=== PATIENT | male | born 1975 | race Caucasian/White ===

== ENCOUNTER 2018-10-19 17:07 | Observation (INO) | payer OTHER ==
[2018-10-19] MEDS ORDERED: ASPIRIN 81 MG PO STA (17:53)
[2018-10-19] MEDS ORDERED: NITROGLYCERIN OINT 1 INCH/GM PACKET TOPICAL STA (17:53)
[2018-10-19] MEDS ORDERED: MORPHINE SULFATE 4 MG/ML SYRINGE IV STA (17:53)
--- NOTE | 2018-10-19 18:00 | ED ---
General Adult HPI - General Chief complaint: Chest Pain Stated complaint: Chest Pain Time Seen by Provider: 10/19/18 17:43 Source: patient, EMS, RN notes reviewed Mode of arrival: EMS Limitations: no limitations - History of Present Illness Initial comments: Patient is a pleasant 43-year-old male presenting to the emergency Department with complaints of chest discomfort. Onset of symptoms was prior to arrival while walking. Patient has pressure in the left side of his chest. There is occasional radiation towards the jaw. Patient does have some mild associated dyspnea. No nausea. Patient was sweaty at onset however that has resolved. Patient received aspirin and 2 nitroglycerin by EMS without any change of symptoms. Discomfort remains 10/18. No back pain. No leg pain or leg swelling. No history of similar symptoms previously. - Related Data Home Medications Medication Instructions Recorded Confirmed Lisinopril 40 mg PO DAILY 10/19/18 10/19/18 amLODIPine [Norvasc] 10 mg PO DAILY 10/19/18 10/19/18 Allergies Allergy/AdvReac Type Severity Reaction Status Date / Time Iodinated Contrast- Oral and Allergy Anaphylaxis Verified 10/19/18 17:32 IV Dye Review of Systems ROS Statement: Those systems with pertinent positive or pertinent negative responses have been documented in the HPI. ROS Other: All systems not noted in ROS Statement are negative. Constitutional: Denies: fever Eyes: Denies: eye pain ENT: Denies: ear pain Respiratory: Denies: cough Cardiovascular: Reports: chest pain Endocrine: Denies: fatigue Gastrointestinal: Denies: abdominal pain Genitourinary: Reports: dysuria Musculoskeletal: Reports: back pain Skin: Denies: rash Neurological: Denies: weakness General Exam Limitations: no limitations General appearance: alert, in no apparent distress Head exam: Present: atraumatic Eye exam: Present: normal appearance ENT exam: Present: normal oropharynx Neck exam: Present: normal inspection Respiratory exam: Present: normal lung sounds bilaterally. Absent: chest wall tenderness Cardiovascular Exam: Present: regular rate, irregular rhythm Expanded Peripheral pulses: 2+: Radial (R), Radial (L), Dorsalis Pedis (R), Dorsalis Pedis (L) GI/Abdominal exam: Present: soft. Absent: tenderness Extremities exam: Present: normal inspection. Absent: pedal edema, calf tenderness Neurological exam: Present: alert Psychiatric exam: Present: normal affect, normal mood Skin exam: Present: normal color Course Vital Signs 10/19/18 10/19/18 10/19/18 17:18 17:20 17:30 Temperature 98.4 F Pulse Rate 77 73 73 Respiratory 24 Rate Blood Pressure 152/91 O2 Sat by Pulse 95 95 92 L Oximetry 10/19/18 10/19/18 10/19/18 17:40 17:50 18:00 Temperature Pulse Rate 74 68 69 Respiratory Rate Blood Pressure 146/85 O2 Sat by Pulse 92 L Oximetry 10/19/18 10/19/18 18:10 18:20 Temperature Pulse Rate 67 64 Respiratory Rate Blood Pressure 146/85 146/85 O2 Sat by Pulse 91 L Oximetry EKG Findings - EKG Comments: EKG Findings:: Sinus rhythm at 81. PVC is present. Care 122. QRS 104. QT 400. QTc 464. Left axis. LVH. No acute ST change. Medical Decision Making - Medical Decision Making Patient reevaluated and resting comfortably in bed. Patient saw some discomfort. Patient updated on results and plan. Case was discussed in detail with Dr. Becker, covering for hospital call, who will admit. - Lab Data Result diagrams: 10/19/18 17:15 10/19/18 17:15 Lab Results 10/19/18 10/19/18 10/19/18 Range/Units 17:15 17:15 17:15 WBC 16.6 H (3.8-10.6) k/uL RBC 5.38 (4.30-5.90) m/uL Hgb 14.5 (13.0-17.5) gm/dL Hct 43.9 (39.0-53.0) % MCV 81.6 (80.0-100.0) fL MCH 27.0 (25.0-35.0) pg MCHC 33.1 (31.0-37.0) g/dL RDW 15.2 (11.5-15.5) % Plt Count 214 (150-450) k/uL Neutrophils % 93 % Lymphocytes % 4 % Monocytes % 2 % Eosinophils % 1 % Basophils % 0 % Neutrophils # 15.4 H (1.3-7.7) k/uL Lymphocytes # 0.7 L (1.0-4.8) k/uL Monocytes # 0.3 (0-1.0) k/uL Eosinophils # 0.1 (0-0.7) k/uL Basophils # 0.1 (0-0.2) k/uL Hypochromasia Slight Poikilocytosis Slight PT 9.9 (9.0-12.0) sec INR 0.9 (<1.2) APTT 23.0 (22.0-30.0) sec D-Dimer 0.42 (<0.60) mg/L FEU Sodium 138 (137-145) mmol/L Potassium 4.9 (3.5-5.1) mmol/L Chloride 100 (98-107) mmol/L Carbon Dioxide 27 (22-30) mmol/L Anion Gap 11 mmol/L BUN 30 H (9-20) mg/dL Creatinine 0.86 (0.66-1.25) mg/dL Est GFR (CKD-EPI)AfAm >90 (>60 ml/min/1.73 sqM) Est GFR (CKD-EPI)NonAf >90 (>60 ml/min/1.73 sqM) Glucose 223 H (74-99) mg/dL Calcium 9.6 (8.4-10.2) mg/dL Magnesium 2.1 (1.6-2.3) mg/dL Total Bilirubin 0.7 (0.2-1.3) mg/dL AST 28 (17-59) U/L ALT 33 (21-72) U/L Alkaline Phosphatase 43 (38-126) U/L Troponin I (0.000-0.034) ng/mL NT-Pro-B Natriuret Pep pg/mL Total Protein 7.0 (6.3-8.2) g/dL Albumin 4.3 (3.5-5.0) g/dL 10/19/18 10/19/18 Range/Units 17:15 17:15 WBC (3.8-10.6) k/uL RBC (4.30-5.90) m/uL Hgb (13.0-17.5) gm/dL Hct (39.0-53.0) % MCV (80.0-100.0) fL MCH (25.0-35.0) pg MCHC (31.0-37.0) g/dL RDW (11.5-15.5) % Plt Count (150-450) k/uL Neutrophils % % Lymphocytes % % Monocytes % % Eosinophils % % Basophils % % Neutrophils # (1.3-7.7) k/uL Lymphocytes # (1.0-4.8) k/uL Monocytes # (0-1.0) k/uL Eosinophils # (0-0.7) k/uL Basophils # (0-0.2) k/uL Hypochromasia Poikilocytosis PT (9.0-12.0) sec INR (<1.2) APTT (22.0-30.0) sec D-Dimer (<0.60) mg/L FEU Sodium (137-145) mmol/L Potassium (3.5-5.1) mmol/L Chloride (98-107) mmol/L Carbon Dioxide (22-30) mmol/L Anion Gap mmol/L BUN (9-20) mg/dL Creatinine (0.66-1.25) mg/dL Est GFR (CKD-EPI)AfAm (>60 ml/min/1.73 sqM) Est GFR (CKD-EPI)NonAf (>60 ml/min/1.73 sqM) Glucose (74-99) mg/dL Calcium (8.4-10.2) mg/dL Magnesium (1.6-2.3) mg/dL Total Bilirubin (0.2-1.3) mg/dL AST (17-59) U/L ALT (21-72) U/L Alkaline Phosphatase (38-126) U/L Troponin I 0.017 (0.000-0.034) ng/mL NT-Pro-B Natriuret Pep 265 pg/mL Total Protein (6.3-8.2) g/dL Albumin (3.5-5.0) g/dL - Radiology Data Radiology results: image reviewed ( x-ray shows no acute process) Disposition Clinical Impression: Chest pain Disposition: ADMITTED IP TO THIS HOSP Is patient prescribed a controlled substance at d/c from ED?: No Referrals: None,Stated [Primary Care Provider] - 1-2 days Decision Time: 19:54
[2018-10-19 18:38] LABS: Basophils # (A) 0.1 k/uL (0-0.2); Basophils % (A) 0 %; Eosinophils # (A) 0.1 k/uL (0-0.7); Eosinophils % (A) 1 %; HCT 43.9 % (39.0-53.0); HGB 14.5 gm/dL (13.0-17.5); Hypochromasia Slight; Lymphocytes # (A) 0.7 k/uL (1.0-4.8); Lymphocytes % (A) 4 %; MCHC 33.1 g/dL (31.0-37.0); MCV 81.6 fL (80.0-100.0); Mean Platelet Volume 8.1; Monocytes # (A) 0.3 k/uL (0-1.0); Monocytes % (A) 2 %; Neutrophils # (A) 15.4 k/uL (1.3-7.7); Neutrophils % (A) 93 %; Platelet Count 214 k/uL (150-450); Poikilocytosis Slight; RBC 5.38 m/uL (4.30-5.90); RDW 15.2 % (11.5-15.5); WBC 16.6 k/uL (3.8-10.6)
[2018-10-19 18:45] LABS: ALT 33 U/L (21-72); AST 28 U/L (17-59); African American GFR (CKD) >90 (>60 ml/min/1.73 sqM); Albumin 4.3 g/dL (3.5-5.0); Alkaline Phosphatase 43 U/L (38-126); Anion Gap 11 mmol/L; Blood Urea Nitrogen 30 mg/dL (9-20); Calcium 9.6 mg/dL (8.4-10.2); Carbon Dioxide 27 mmol/L (22-30); Chloride 100 mmol/L (98-107); Glucose 223 mg/dL (74-99); Magnesium 2.1 mg/dL (1.6-2.3); Potassium 4.9 mmol/L (3.5-5.1); Sodium 138 mmol/L (137-145); Total Bilirubin 0.7 mg/dL (0.2-1.3)
[2018-10-19 18:52] LABS: D-Dimer 0.42 mg/L FEU (<0.60); INR 0.9 (<1.2); Prothrombin Time 9.9 sec (9.0-12.0)
--- NOTE | 2018-10-19 18:55 | XR ---
EXAMINATION TYPE: XR chest 2V DATE OF EXAM: 10/19/2018 COMPARISON: NONE HISTORY: Chest pain TECHNIQUE: Frontal and lateral views of the chest are obtained. FINDINGS: Heart and mediastinum are normal. Lungs are clear. Diaphragm is normal. Bony thorax appear s normal. IMPRESSION: Normal chest.
[2018-10-19] MEDS ORDERED: NITROGLYCERIN SL TABS 0.4 MG TAB SUBLINGUAL STA (19:03)
[2018-10-19] MEDS ORDERED: MAG HYDROX/AL HYDROX/SIMETH 30 ML, HYOSCYAMINE ELIXIR 10 ML, CIMETIDINE HCL 300 MG, LID... PO STA ×4 (19:26)
[2018-10-19] MEDS ORDERED: NITROGLYCERIN SL TABS 0.4 MG TAB SUBLINGUAL PRN (19:54)
[2018-10-19] MEDS ORDERED: MORPHINE SULFATE 4 MG/ML SYRINGE IVP STA (20:17)
--- NOTE | 2018-10-19 23:18 | P.HPIM ---
History of Present Illness H&P Date: 10/19/18 Chief Complaint: chest pain 44-year-old male with history of smoking, hypertension Patient presented to Hospital 2 hour history of chest pain described as central pressure-like 8 out of 10 in severity with numbness of the left arm and radiation of the pain to the jaw. Denies any associated nausea vomiting fevers chills denies any coughing shortness of breath denies any diaphoresis palpitations. Patient denies any similar attacks in the past he's concerned regarding heart attack as his mom had her NE at age of 40 Patient reports that he was walking when the pain happened but he doesn't associate the pain with any activity at this time. He reports history of COPD using inhalers at home but no home oxygen. Patient is exhibiting behavior of drug-seeking. He is requesting morphine to help him with his chest pain. In the ED his EKG was showing frequent premature atrial complexes,cardiac enzymes negative. Patient admitted for chest painrule out Review of Systems Pertinent positives as noted in HPI. All other systems were reviewed and are negative Past Medical History Past Medical History: COPD, Hypertension History of Any Multi-Drug Resistant Organisms: None Reported Past Surgical History: No Surgical Hx Reported Additional Past Surgical History / Comment(s): skin graft in 2008 Past Psychological History: No Psychological Hx Reported Smoking Status: Current every day smoker Past Alcohol Use History: None Reported Past Drug Use History: None Reported - Past Family History Mother Family Medical History: Hypertension, Myocardial Infarction ([place]), Thyroid Disorder Additional Family Medical History / Comment(s): NE at the age of 40 Father Family Medical History: No Reported History Medications and Allergies Home Medications Medication Instructions Recorded Confirmed Type Lisinopril 40 mg PO DAILY 10/19/18 10/19/18 History amLODIPine [Norvasc] 10 mg PO DAILY 10/19/18 10/19/18 History Allergies Allergy/AdvReac Type Severity Reaction Status Date / Time Iodinated Contrast- Oral and Allergy Anaphylaxis Verified 10/19/18 17:32 IV Dye Physical Exam Vitals: Vital Signs Temp Pulse Pulse Resp BP BP Pulse Ox 10/19/18 23:05 98.5 F 74 18 134/71 91 L 10/19/18 20:39 98.6 F 68 18 149/85 90 L 10/19/18 18:20 64 146/85 91 L 10/19/18 18:10 67 146/85 10/19/18 18:00 69 146/85 10/19/18 17:50 68 92 L 10/19/18 17:40 74 10/19/18 17:30 73 92 L 10/19/18 17:20 73 95 10/19/18 17:18 98.4 F 77 24 152/91 95 Intake and Output 10/19/18 10/19/18 10/20/18 14:59 22:59 06:59 Other: Weight 136.078 kg Constitutional: No acute distress, conversant, pleasant Eyes: Anicteric sclerae, moist conjunctiva, no lid-lag Pupils equal round reactive to light ENMT: NC/AT Oropharynx clear, no erythema, exudates Neck: Supple, FROM, no masses, or JVD No carotid bruits No thyromegaly Lungs: Clear to auscultation Clear to percussion Normal respiratory effort, no accessory muscle use Cardiovascular: Heart regular in rate and rhythm, No murmurs, gallops, or rubs No peripheral edema Abdominal: Soft Nontender, no guarding, rebound or rigidity Abdomen moving with respiration Normoactive bowel sounds No hepatomegaly, No splenomegaly No palpable mass No abdominal wall hernia noted Skin: Normal temperature, tone, texture, turgor No induration No subcutaneous nodules No rash, lesions No ulcers Extremities: No digital cyanosis No clubbing Pedal pulses intact and symmetrical Radial pulses intact and symmetrical No calf tenderness Psychiatric: Alert and oriented to person, place and time Appropriate affect fair judgement Neuro Muscles Strength 5/5 in all 4 extremities Sensation to light touch grossly present throughout Cranial nerves II-XII grossly intact No focal sensory deficits Lymphatics: no palpable cervical or supraclavicular , or inguinal lymph nodes Results CBC & Chem 7: 10/19/18 17:15 10/19/18 17:15 Labs: Abnormal Lab Results - Last 24 Hours (Table) 10/19/18 10/19/18 Range/Units 17:15 17:15 WBC 16.6 H (3.8-10.6) k/uL Neutrophils # 15.4 H (1.3-7.7) k/uL Lymphocytes # 0.7 L (1.0-4.8) k/uL BUN 30 H (9-20) mg/dL Glucose 223 H (74-99) mg/dL Thrombosis Risk Factor Assmnt - Choose All That Apply Any of the Below Risk Factors Present?: Yes Each Factor Represents 1 point: Abnormal pulmonary function (COPD), Age 41-60 years, Obesity (BMI >25) Other Risk Factors: No Thrombosis Risk Factor Assessment Total Risk Factor Score: 3 Thrombosis Risk Factor Assessment Level: Moderate Risk Assessment and Plan Assessment: 43-year-old male with history of hypertension COPD and smoking admitted under observation with anticipated length of stay less than 48 hours due to atypical chest pain with risk factors of hypertension, obesity, smoking, and premature CAD in his mom. She also manifesting drug-seeking behavior Plan: atypical chest pain with riskfactors of obesity, hypertension, active smoking, premature CAD in his mom Cardiac enzymes trending Cardiac monitoring Cardiology consult Aspirin nitro when necessary Morphine when necessary abnormal EKG with frequent premature atrial complexes Check electrolytes, both magnesium and potassium are unremarkable History of COPD compensated When necessary DuoNeb's Hypertension currently controlled continue with amlodipine DVT prophylaxis heparin subcu 3 times a day patient is exhibiting Drug-seeking behavior CODE STATUS:full code Discussed with: Patient, ER, RN Anticipated discharge: less than [address]: home A total of 60 minutes was spent on the care of this complex patient more than 50% of the time was spent in counseling and care coordination.
[2018-10-19] MEDS ORDERED: IPRATROPIUM-ALBUTEROL 3 ML NEB INHALATION PRN (23:19)
[2018-10-20] MEDS ORDERED: HEPARIN SODIUM,PORCINE 5,000 UNIT/ML 1 ML VIAL SQ SCH
[2018-10-20] MEDS: NITROGLYCERIN OINT 1 INCH/GM PACKET TOPICAL SCH ×2 (00:34→04:28)
[2018-10-20] MEDS: MORPHINE SULFATE 4 MG/ML SYRINGE IVP PRN ×2 (03:08→08:22)
[2018-10-20 05:55] LABS: Cholesterol 122 mg/dL (<200); HDL Cholesterol 42 mg/dL (40-60); LDL Cholesterol,Calculated 60 mg/dL (0-99); Triglycerides 102 mg/dL (<150)
[2018-10-20 06:36] LABS: Glucose,Whole Blood 138 mg/dL (75-99)
[2018-10-20 07:19] VITALS: BP 158/107; PULSE 54; RESP 18; TEMP 98
[2018-10-20] MEDS ORDERED: INSULIN ASPART (NovoLOG) 100 UNIT/ML VIAL SQ SCH (07:30)
[2018-10-20] MEDS: SODIUM CHLORIDE 0.9% 1,000 ML IV SCH (07:31)
[2018-10-20] MEDS ORDERED: ACETAMINOPHEN TAB 325 MG TAB PO PRN (07:58)
[2018-10-20] MEDS ORDERED: ASPIRIN 81 MG PO STA (07:58)
[2018-10-20] MEDS ORDERED: HEPARIN SOD,PORK IN 0.45% NACL 25,000 UNIT in 0.45% NACL 1 250ML.BAG IV SCH (08:00)
[2018-10-20] MEDS ORDERED: ATORVASTATIN 80 MG TAB PO STA (08:00)
[2018-10-20] MEDS ORDERED: REGADENOSON 0.4 MG/5 ML SYRINGE IV ONE (08:10)
[2018-10-20] MEDS ORDERED: CAFFEINE CITRATE 60 MG/3 ML VIAL IV PRN (08:10)
[2018-10-20] MEDS ORDERED: AMINOPHYLLINE 500 MG/20 ML VIAL IV PRN (08:10)
--- NOTE | 2018-10-20 08:22 | P.CRDCN ---
History of Present Illness Consult date: 10/20/18 History of present illness: This is a 41-year-old gentleman with history of hypertension and smoking and also COPD, which admitted to the hospital with complaints of chest pain. Patient claims the pain is felt on the left side of the chest and aching in nature. The pain has been continuous since yesterday. It doesn't change with any respiratory movements, or chest movements. No tenderness. There is some radiation of the pain to the left arm and some numbness. Patient never had these pains before. No history of any previous myocardial infarction. Patient does have a history of hypertension and smoking. Patient also claims that her mother had heart attack 40s. His EKGs so far are negative. Cardiac enzymes are negative. Patient pain seemed to be relieved with morphine. There is suspicion patient may be drug-seeking in behavior. We'll going to evaluate him and echocardiogram. If that is normal, we'll proceed with the Lexiscan/Persantine stress test. If the test are normal, he could be discharged home. Patient will continue with risk factor modification. Review of Systems As per the chart Past Medical History Past Medical History: COPD, Hypertension History of Any Multi-Drug Resistant Organisms: None Reported Past Surgical History: No Surgical Hx Reported Additional Past Surgical History / Comment(s): skin graft in 2008 Past Psychological History: No Psychological Hx Reported Smoking Status: Current every day smoker Past Alcohol Use History: None Reported Past Drug Use History: None Reported - Past Family History Mother Family Medical History: Hypertension, Myocardial Infarction ([place]), Thyroid Disorder Additional Family Medical History / Comment(s): AL at the age of 40 Father Family Medical History: No Reported History Medications and Allergies Home Medications Medication Instructions Recorded Confirmed Type Lisinopril 40 mg PO DAILY 10/19/18 10/19/18 History amLODIPine [Norvasc] 10 mg PO DAILY 10/19/18 10/19/18 History Allergies Allergy/AdvReac Type Severity Reaction Status Date / Time Iodinated Contrast- Oral and Allergy Anaphylaxis Verified 10/19/18 17:32 IV Dye Physical Exam Vitals: Vital Signs Temp Pulse Pulse Resp BP BP Pulse Ox 10/20/18 07:00 98.0 F 54 L 18 158/107 93 L 10/20/18 03:35 98.4 F 56 L 16 162/90 90 L 10/19/18 23:05 98.5 F 74 18 134/71 91 L 10/19/18 20:39 98.6 F 68 18 149/85 90 L 10/19/18 18:20 64 146/85 91 L 10/19/18 18:10 67 146/85 10/19/18 18:00 69 146/85 10/19/18 17:50 68 92 L 10/19/18 17:40 74 10/19/18 17:30 73 92 L 10/19/18 17:20 73 95 10/19/18 17:18 98.4 F 77 24 152/91 95 Intake and Output 10/19/18 10/20/18 10/20/18 22:59 06:59 14:59 Other: # Voids 1 Weight 136.078 kg GENERAL EXAM: Patient is alert and oriented and doesn't appear to be in any acute distress HEENT: Normocephalic. Normal reaction of pupils, equal size, normal range of extraocular motion. No erythema or exudates in the throat. NECK: No masses, no nuchal rigidity. CHEST: No chest wall deformity. LUNGS: Decreased air exchange and some expiratory rhonchi HEART: S1 and S2 normal. Distant heart sounds ABDOMEN: No hepatosplenomegaly, normal bowel sounds, no guarding or rigidity. SKIN: No rashes CENTRAL NERVOUS SYSTEM: No focal deficits. EXTREMITIES: No cyanosis, clubbing or edema. Results 10/19/18 17:15 10/19/18 17:15 Cardiac Enzymes 10/19/18 10/19/18 10/19/18 Range/Units 17:15 17:15 23:18 AST 28 (17-59) U/L Troponin I 0.017 0.024 (0.000-0.034) ng/mL 10/20/18 Range/Units 05:13 AST (17-59) U/L Troponin I 0.035 H* (0.000-0.034) ng/mL Coagulation 10/19/18 Range/Units 17:15 PT 9.9 (9.0-12.0) sec APTT 23.0 (22.0-30.0) sec Lipids 10/20/18 Range/Units 05:13 Triglycerides 102 (<150) mg/dL Cholesterol 122 (<200) mg/dL HDL Cholesterol 42 (40-60) mg/dL CBC 10/19/18 Range/Units 17:15 WBC 16.6 H (3.8-10.6) k/uL RBC 5.38 (4.30-5.90) m/uL Hgb 14.5 (13.0-17.5) gm/dL Hct 43.9 (39.0-53.0) % Plt Count 214 (150-450) k/uL Comprehensive Metabolic Panel 10/19/18 Range/Units 17:15 Sodium 138 (137-145) mmol/L Potassium 4.9 (3.5-5.1) mmol/L Chloride 100 (98-107) mmol/L Carbon Dioxide 27 (22-30) mmol/L BUN 30 H (9-20) mg/dL Creatinine 0.86 (0.66-1.25) mg/dL Glucose 223 H (74-99) mg/dL Calcium 9.6 (8.4-10.2) mg/dL AST 28 (17-59) U/L ALT 33 (21-72) U/L Alkaline Phosphatase 43 (38-126) U/L Total Protein 7.0 (6.3-8.2) g/dL Albumin 4.3 (3.5-5.0) g/dL Current Medications Generic Name Dose Route Start Last Admin Trade Name Freq PRN Reason Stop Dose Admin Acetaminophen 650 mg 10/20/18 07:58 Tylenol Tab PO Q4HR PRN Pain Albuterol/Ipratropium 3 ml 10/19/18 23:19 Duoneb 0.5 Mg-3 Mg/3 Ml Soln INHALATION RT-QID PRN Shortness Of Breath Or Wheezing Aminophylline 100 mg 10/20/18 08:10 Aminophylline IV ONCE PRN Patient Response Amlodipine Besylate 10 mg 10/20/18 09:00 Norvasc PO DAILY [facility] Aspirin 325 mg 10/20/18 09:00 Aspirin PO DAILY [facility] Atorvastatin Calcium 40 mg 10/21/18 21:00 Lipitor PO HS [facility] Caffeine Citrate 60 mg 10/20/18 08:10 Cafcit Inj IV ONCE PRN Patient Response Sodium Chloride 1,000 mls @ 150 mls/hr 10/19/18 23:15 10/20/18 07:31 Saline 0.9% IV Not Given .Q6H40M [facility] Insulin Aspart 0 unit 10/20/18 07:30 10/20/18 07:32 Novolog SQ Not Given ACHS [facility] Protocol Lisinopril 40 mg 10/20/18 09:00 Zestril PO DAILY [facility] Morphine Sulfate 4 mg 10/19/18 23:08 10/20/18 03:08 Morphine Sulfate (Inj) IVP 4 mg Q6HR PRN Administration Pain Nitroglycerin 1 inch 10/20/18 00:00 10/20/18 04:28 Nitro-Bid Oint TOPICAL Not Given Q6HR [facility] Nitroglycerin 0.4 mg 10/19/18 19:54 Nitrostat SUBLINGUAL Q5M PRN Chest Pain Regadenoson 0.4 mg 10/20/18 08:10 Lexiscan IV 10/20/18 08:11 ONCE ONE Intake and Output 10/19/18 10/20/18 10/20/18 22:59 06:59 14:59 Other: # Voids 1 Weight 136.078 kg 10/19/18 17:15 10/19/18 17:15 EKG Interpretations (text) Sinus rhythm with frequent APCs, left axis deviation and voltage criteria for LVH Assessment and Plan (1) Atypical chest pain Current Visit: Yes Status: Acute Code(s): R07.89 - OTHER CHEST PAIN SNOMED Code(s): 064765777 (2) Essential hypertension Current Visit: Yes Status: Acute Code(s): I10 - ESSENTIAL (PRIMARY) HYPERTENSION SNOMED Code(s): 24766099 (3) COPD (chronic obstructive pulmonary disease) Current Visit: Yes Status: Acute Code(s): J44.9 - CHRONIC OBSTRUCTIVE PULMONARY DISEASE, UNSPECIFIED SNOMED Code(s): 36539763 (4) Smoking Current Visit: Yes Status: Acute Code(s): F17.200 - NICOTINE DEPENDENCE, UNSPECIFIED, UNCOMPLICATED SNOMED Code(s): 61526139 (5) Family history of ischemic heart disease Current Visit: Yes Status: Acute Code(s): Z82.49 - FAMILY HX OF ISCHEM HEART DIS AND OTH DIS OF THE CIRC SYS SNOMED Code(s): 625580910 Plan: Enzymes are negative. EKG did not reveal any acute changes. We'll proceed with echocardiogram and also Persantine stress test. If the test are normal, patient could be discharged home. Patient should follow this factor modification
[2018-10-20] MEDS ORDERED: DIPYRIDAMOLE 70 MG in SODIUM CHLORIDE 0.9% 36 ML IV ONE (08:30)
[2018-10-20] MEDS ORDERED: LISINOPRIL 20 MG TAB PO SCH (09:00)
[2018-10-20] MEDS ORDERED: amLODIPine 10 MG TAB PO SCH (09:00)
[2018-10-20] MEDS ORDERED: ASPIRIN 325 MG TAB PO SCH (09:00)
[2018-10-20] MEDS ORDERED: DOBUTamine DRIP for NUC MED 500 MG in DEXTROSE/WATER 1 250ML.BAG IV ONE (10:00)
[2018-10-20] MEDS ORDERED: LORazepam 2 MG/ML INJ IV STA (10:28)
--- NOTE | 2018-10-20 14:59 | P.DS ---
Providers Date of admission: 10/19/18 19:54 Expected date of discharge: 10/20/18 Attending physician: Liam Balbuena MD Consults: 10/19/18 19:54 Consult Physician Urgent Consulting Provider: Brenda Darling Consult Reason/Comments: cp Do you want consulting provider notified?: Yes Primary care physician: Stated None - Discharge Diagnosis(es) (1) Atypical chest pain Status: Acute (2) Essential hypertension Status: Acute (3) Elevated troponin Status: Acute (4) COPD (chronic obstructive pulmonary disease) Status: Acute (5) Family history of ischemic heart disease Status: Acute (6) Smoking Status: Acute (7) Left against medical advice Status: Acute (8) Obesity Status: Acute Hospital Course: The patient is a 43-year-old obese male with a history of hypertension smoker obesity family history of heart disease that was placed on observation after presenting here with atypical chest pain. The patient was noted to have elevated troponin on his third set of 0.035, his EKG was negative for any suggestion of an acute ischemia. The patient was seen by cardiology recommended to have a stress test, echocardiogram was ordered. The patient complained of ongoing chest pain and was given morphine 4 mg and kept on requesting more pain medication. Patient was scheduled to have scratched chest test done and only completed the first part of it citing ongoing claustrophobia issues and demanded Ativan. He was given Ativan in the plan that he would return to have the second part of the stress test completed, however the patient decided to leave AMA without completing his workup here this discharge process took approximately 30 minutes. Patient Condition at Discharge: Undetermined Plan - Discharge Summary New Discharge Prescriptions: No Action amLODIPine [Norvasc] 10 mg PO DAILY Lisinopril 40 mg PO DAILY Discharge Medication List Lisinopril 40 mg PO DAILY 10/19/18 [History] amLODIPine [Norvasc] 10 mg PO DAILY 10/19/18 [History] Follow up Appointment(s)/Referral(s): None,Stated [Primary Care Provider] - 1-2 days Discharge Disposition: Left Against Medical Advice
[2018-10-21] MEDS ORDERED: ATORVASTATIN 40 MG TAB PO SCH (21:00)
== END 2018-10-20 11:15 | disposition left against medical advice (07) ==
LOC: EC 17:07 → 1SOBS 19:54
PROVIDERS: ADMIT Internal Medicine; ATTEND Internal Medicine
DX: R07.89 Other chest pain (principal); I49.1 Atrial premature depolarization; I10 Essential (primary) hypertension; R77.8 Other specified abnormalities of plasma proteins; Z76.5 Malingerer [conscious simulation]; J44.9 Chronic obstructive pulmonary disease, unspecified; E66.9 Obesity, unspecified; F17.200 Nicotine dependence, unspecified, uncomplicated; Z68.41 Body mass index [BMI] 40.0-44.9, adult; F40.240 Claustrophobia; Z79.899 Other long term (current) drug therapy; Z91.041 Radiographic dye allergy status; Z82.49 Family history of ischemic heart disease and other diseases of the circulatory system; Z83.49 Family history of other endocrine, nutritional and metabolic diseases
CPT/HCPCS: 96372; 96375; 96376 ×2; 96374; 99285; 36415; 93005; 85379; 83880; 80061; 80053; 83735; 84484 ×2; 85025; 85610; 85730; 71046; G0378 ×2; J2060; J1250; J2270 ×2; J1644; J1245